=== PATIENT | female | born 1990 | race Caucasian/White ===

== ENCOUNTER 2019-03-08 11:57 | Emergency (ER) | payer MEDICAID ==
[~2019-03-08] VITALS: Ht 165.1 cm; Wt 78.5 kg
[2019-03-08 12:14] VITALS: Ht 165.1 cm; Wt 78.5 kg
[2019-03-08 15:22] VITALS: BP 135/84
== END 2019-03-08 15:22 | disposition home or self-care (01) ==
LOC: ED 11:57
DX: N64.4 Mastodynia (principal); N63.0 Unspecified lump in unspecified breast; M54.9 Dorsalgia, unspecified; R53.1 Weakness
CPT/HCPCS: 76641

== ENCOUNTER 2020-04-10 08:39 | Emergency (ER) | payer OTHER, SELFPAY ==
[~2020-04-10] VITALS: Ht 165.1 cm; Wt 68.9 kg
[2020-04-10 08:40] VITALS: BP 131/81; Ht 165.1 cm; Wt 68.9 kg
== END 2020-04-10 09:38 | disposition home or self-care (01) ==
LOC: ED 08:39
DX: U07.1 COVID-19 (principal); B34.9 Viral infection, unspecified
CPT/HCPCS: 87804; U0003

== ENCOUNTER 2020-04-12 13:42 | Emergency (ER) | payer OTHER ==
[~2020-04-12] VITALS: Ht 160 cm; Wt 68.9 kg
[2020-04-12 13:43] VITALS: Ht 160 cm; Wt 68.9 kg
[2020-04-12 15:27] VITALS: BP 133/80
== END 2020-04-12 16:06 | disposition home or self-care (01) ==
LOC: ED 13:42
DX: B34.9 Viral infection, unspecified (principal)